=== PATIENT | male | born 1945 | race Caucasian/White ===

== ENCOUNTER → 2018-06-20 16:17 | Outpatient (CLI) | payer MEDICARE, OTHER, SELFPAY ==
[2018-06-20 17:11] LABS: Hematocrit 48.1 % (41-53); Hemoglobin 15.8 g/dL (13.5-17.5); Mean Corpuscular HGB Conc 32.9 % (30-36); Mean Corpuscular Hemoglobin 26.9 PG (26-34); Mean Corpuscular Volume 81.8 fL (80-100); Platelet Count 291 X10^3/uL (150-400); Red Blood Cell Count 5.88 X10^6/uL (4.5-5.9); Red Cell Distribution Width 15.2 % (11.6-14.8); White Blood Cell Count 10.5 X10^3/uL (4.5-11.0)
[2018-06-20 17:23] LABS: Alanine Aminotransferase 46 IU/L (21-72); Albumin 4.1 g/dL (3.5-5.0); Albumin Globulin Ratio 1.4 (1.0-2.8); Alkaline Phosphatase 71 U/L (38-126); Aspartate Aminotransferase 37 IU/L (17-59); BUN Creatinine Ratio 14.3 (6-22); Bilirubin Total 0.7 mg/dL (0.2-1.3); Blood Urea Nitrogen 20 mg/dL (9-20); Calcium 9.8 mg/dL (8.4-10.2); Carbon Dioxide 29 mmol/L (22-32); Chloride 100 mmol/L (98-107); Cholesterol 114 mg/dL (140-199); Globulin 2.9 g/dL (1.7-4.1); Glucose 154 mg/dL (80-110); HDL Cholesterol 40 mg/dL (40-60); HEMOLYSIS < 15 (0-50); Hemoglobin A1C% w Est Avg Glu 8.7 % (4.0-6.0); LDL Cholesterol Calculated 49 mg/dL (<100); Potassium 3.8 mmol/L (3.4-5.1); Sodium 142 mmol/L (137-145); Triglycerides 126 mg/dL (35-150)
[2018-06-20 17:39] LABS: Free T4, Direct Thyroxine 1.82 ng/dL (0.78-2.19); Vitamin D 25 Hydroxy (D3) 32.1 ng/mL (30.0-100.0)
[2018-06-20 17:53] LABS: Thyroid Stimulating Hormone 0.03 uIU/mL (0.47-4.68)
== END ==
PROVIDERS: PCP Student in an Organized Health Care Education/Training Program; Visit Provider Student in an Organized Health Care Education/Training Program
DX: E03.9 Hypothyroidism, unspecified (principal); E55.9 Vitamin D deficiency, unspecified; E11.9 Type 2 diabetes mellitus without complications; G47.33 Obstructive sleep apnea (adult) (pediatric); I10 Essential (primary) hypertension; J20.9 Acute bronchitis, unspecified; J44.0 Chronic obstructive pulmonary disease with (acute) lower respiratory infection
CPT/HCPCS: 36415; 80053; 80061; 82306; 83036; 84439; 84443; 85027

== ENCOUNTER → 2019-02-13 15:24 | Outpatient (CLI) | payer MEDICARE, OTHER, SELFPAY ==
[2019-02-13 16:15] LABS: RBC Urine None Seen (0-5/HPF)
[2019-02-13 16:23] LABS: Appearance Urine UA CLEAR; Bilirubin Urine UA NEGATIVE (NEGATIVE); Color Urine UA ORANGE; Ketones Urine UA NEGATIVE (NEGATIVE); Leukocyte Esterase Urine UA NEGATIVE (NEGATIVE); Occult Blood Urine UA NEGATIVE (Negative)
[2019-02-13 16:30] LABS: Bacteria Urine Few (2-10); Culture Indicated Urine Specimen Cultured; Squamous Epithelial Cell Urine 0-1 /HPF (0-5/HPF); WBC Urine 1-5/HPF (0-5/HPF)
== END ==
PROVIDERS: Family Provider Family Medicine; PCP Student in an Organized Health Care Education/Training Program; Visit Provider Nurse Practitioner
DX: N39.0 Urinary tract infection, site not specified (principal); R30.0 Dysuria
CPT/HCPCS: 81001; 87086

== ENCOUNTER → 2019-09-11 12:51 | Outpatient (CLI) | payer MEDICARE, OTHER, SELFPAY ==
--- NOTE | 2019-09-18 16:29 | PM.PFT.1 ---
Pulmonary Function Test Referral & Results Date Patient Seen: 09/11/19 Requesting provider: Dexter Birch Results: The spirometry demonstrates an FVC of 1.78 L which is 50% of predicted. The FEV1 was measured at 0.95 L which is 37% of predicted. The FEV1/FVC ratio was 53 which is 72% of predicted. No bronchodilator was administered No lung volumes were performed No diffusing capacity was performed Interpretation: This study demonstrates severe obstructive lung disease with FEV1 of less than 1 L Compared to PFTs performed in August 2011, current study shows further decline in lung function with reduction FEV1 from previous value of 1.35 L to current value of 0.95 L.
== END ==
PROVIDERS: Family Provider Family Medicine; PCP Student in an Organized Health Care Education/Training Program; Referring Provider Student in an Organized Health Care Education/Training Program; Visit Provider Student in an Organized Health Care Education/Training Program
DX: J44.0 Chronic obstructive pulmonary disease with (acute) lower respiratory infection (principal); J20.9 Acute bronchitis, unspecified; Z87.891 Personal history of nicotine dependence
CPT/HCPCS: 94010

== ENCOUNTER → 2020-08-18 14:37 | Outpatient (CLI) | payer MEDICARE, OTHER, SELFPAY ==
[2020-08-18 16:38] LABS: Hemoglobin A1C% w Est Avg Glu 6.8 % (4.0-6.0)
[2020-08-18 16:39] LABS: Alanine Aminotransferase 16 IU/L (<50); Albumin 4.1 g/dL (3.5-5.0); Albumin Globulin Ratio 1.2 (1.0-2.8); Alkaline Phosphatase 72 U/L (38-126); Aspartate Aminotransferase 25 IU/L (17-59); BUN Creatinine Ratio 16.1 (6-22); Bilirubin Total 0.4 mg/dL (0.2-1.3); Blood Urea Nitrogen 22 mg/dL (9-20); Calcium 9.3 mg/dL (8.4-10.2); Carbon Dioxide 29 mmol/L (22-32); Estimated Glomerular Filt Rate 50.8 mL/min (>60); Globulin 3.4 g/dL (1.7-4.1); Glucose 116 mg/dL (80-110); HEMOLYSIS < 15 (0-50); Sodium 138 mmol/L (137-145); Total Protein 7.5 g/dL (6.3-8.2)
[2020-08-18 16:51] LABS: Chloride 106 mmol/L (98-107)
[2020-08-18 17:54] LABS: Free T4, Direct Thyroxine 1.14 ng/dL (0.78-2.19)
[2020-08-18 19:52] LABS: Creatinine Urine Random 210.8 mg/dL
[2020-08-18 19:57] LABS: Microalbumi Creatinin Ratio Ur 34.1 ug/mg CR (<30); Microalbumin Urine Random 7.2 mg/dL (0-1.6)
== END ==
PROVIDERS: Family Provider Family Medicine; PCP Student in an Organized Health Care Education/Training Program; Referring Provider Student in an Organized Health Care Education/Training Program; Visit Provider Student in an Organized Health Care Education/Training Program
DX: E11.9 Type 2 diabetes mellitus without complications (principal); E03.9 Hypothyroidism, unspecified; I10 Essential (primary) hypertension; J20.9 Acute bronchitis, unspecified; J44.9 Chronic obstructive pulmonary disease, unspecified
CPT/HCPCS: 36415; 80053; 82043; 82570; 83036; 84439; 84443

== ENCOUNTER → 2021-06-06 14:39 | Outpatient (CLI) | payer MEDICARE, OTHER, SELFPAY ==
[2021-06-06 16:19] LABS: Hemoglobin A1C% w Est Avg Glu 6.3 % (4.0-6.0)
[2021-06-06 16:30] LABS: BUN Creatinine Ratio 15.7 (6-22); Blood Urea Nitrogen 24 mg/dL (9-20); Calcium 9.6 mg/dL (8.4-10.2); Carbon Dioxide 26 mmol/L (22-32); Chloride 102 mmol/L (98-107); Estimated Glomerular Filt Rate 44.7 mL/min (>60); Glucose 96 mg/dL (80-110); HEMOLYSIS < 15 (0-50); Sodium 139 mmol/L (137-145)
[2021-06-06 17:37] LABS: Free T4, Direct Thyroxine 0.58 ng/dL (0.78-2.19)
== END ==
PROVIDERS: Family Provider Family Medicine; PCP Student in an Organized Health Care Education/Training Program; Referring Provider Student in an Organized Health Care Education/Training Program; Visit Provider Student in an Organized Health Care Education/Training Program
DX: E11.69 Type 2 diabetes mellitus with other specified complication (principal); E66.01 Morbid (severe) obesity due to excess calories; N18.31 Chronic kidney disease, stage 3a; E78.5 Hyperlipidemia, unspecified; J44.0 Chronic obstructive pulmonary disease with (acute) lower respiratory infection; J20.9 Acute bronchitis, unspecified; E11.9 Type 2 diabetes mellitus without complications; E03.9 Hypothyroidism, unspecified
CPT/HCPCS: 36415; 80048; 83036; 84439; 84443

== ENCOUNTER 2021-08-23 17:36 | Emergency (ER) | payer MEDICARE, OTHER, SELFPAY ==
[2021-08-23] VITALS (41 sets, daily range): BP systolic 171–221; BP diastolic 76–122; PULSE 59–78; RESP 15–51; TEMP 36.6; O2SAT 91–98; BMI 44.9
--- NOTE | 2021-08-23 17:54 | DI.RAD.S_ITS ---
PROCEDURE: XR CHEST 1V INDICATIONS: dyspnea TECHNIQUE: One view of the chest was acquired. COMPARISON: [facility], CR, CHEST 2VW, 08/14/2011, 12:30. [facility], CR, CHEST 2 VIEW, 08/10/2013, 16:49. FINDINGS: Surgical changes and devices: None. Lungs and pleura: Minimal interstitial prominence can be seen. Low lung volumes are noted. This causes a crowded appearance to the lung markings and limits evaluation. No pleural effusions or pneumothorax. Mediastinum: Mediastinal contours appear normal. Heart size is at the upper limits of normal. Atherosclerotic calcification of the aortic arch is noted. Bones and chest wall: No suspicious bony lesions. Age-appropriate bony degenerative changes are seen. Overlying soft tissues appear unremarkable. IMPRESSION: Minimal interstitial prominence, which is most likely artifactual in this patient with an incomplete inspiratory result. However, differential diagnosis would also include mild pulmonary edema or atypical infection (including COVID pneumonia). If clinically appropriate, a short-term followup chest series (with PA and lateral views) performed in deep inspiration is suggested for further evaluation. Dictated by: Cruz Corey M.D. on 08/23/2021 at 17:43 Approved by: Cruz Corey M.D. on 08/23/2021 at 17:44
[2021-08-23 18:39] LABS: Add Manual Diff / Slide Review NO; Basophils Absolute Auto 100 /uL (0-100); Eosinophils Absolute Auto 900 /uL (0-450); Eosinophils Percent Auto 10.8 % (2-4); Hematocrit 50.2 % (41-53); Hemoglobin 16.5 g/dL (13.5-17.5); Lymphocytes Absolute Auto 1200 /uL (1100-4500); Lymphocytes Percent Auto 14.3 % (25-40); Mean Corpuscular HGB Conc 32.8 % (30-36); Mean Corpuscular Hemoglobin 27.6 PG (26-34); Mean Corpuscular Volume 84.1 fL (80-100); Monocytes Absolute Auto 700 /uL (0-900); Monocytes Percent Auto 7.8 % (3-14); Neutrophils Absolute Auto 5600 /uL (1500-7000); Neutrophils Percent Auto 66.1 % (50-75); Platelet Count 237 X10^3/uL (150-400); Red Blood Cell Count 5.97 X10^6/uL (4.5-5.9); Red Cell Distribution Width 16.3 % (11.6-14.8); White Blood Cell Count 8.4 X10^3/uL (4.5-11.0)
[2021-08-23 18:55] LABS: COVID19 -Nasal RAPID Negative (Negative)
[2021-08-23 19:05] LABS: Creatine Kinase 816 U/L (55-170); Magnesium 2.2 mg/dL (1.6-2.3)
[2021-08-23 19:06] LABS: Alanine Aminotransferase 27 IU/L (<50); Albumin 4.4 g/dL (3.5-5.0); Albumin Globulin Ratio 1.1 (1.0-2.8); Alkaline Phosphatase 63 U/L (38-126); Aspartate Aminotransferase 55 IU/L (17-59); BUN Creatinine Ratio 9.1 (6-22); Bilirubin Total 0.8 mg/dL (0.2-1.3); Blood Urea Nitrogen 15 mg/dL (9-20); Calcium 9.7 mg/dL (8.4-10.2); Carbon Dioxide 30 mmol/L (22-32); Chloride 105 mmol/L (98-107); Estimated Glomerular Filt Rate 40.9 mL/min (>60); Glucose 113 mg/dL (80-110); HEMOLYSIS 23 (0-50); Sodium 140 mmol/L (137-145); Total Protein 8.4 g/dL (6.3-8.2)
[2021-08-23 19:07] LABS: Lactate (Lactic Acid) 1.1 mmol/L (0.7-2.1)
[2021-08-23 19:15] LABS: NT-proBNP (BNP-Adult 18+) 616 pg/mL (<450)
[2021-08-23 19:18] LABS: Troponin I < 0.012 ng/mL (0.01-0.034)
[2021-08-23 19:20] LABS: CKMB % Relative Index 0.7 % (1.5-5.0)
[2021-08-23 19:22] LABS: Procalcitonin 0.09 ng/mL (<0.5)
--- NOTE | 2021-08-23 19:46 | ED.SOB ---
HPI - SOB/Dyspnea General Chief Complaint: Shortness of Breath/Dyspnea Stated Complaint: difficulty breathing Time Seen by Provider: 08/23/21 18:05 Source: patient Mode of arrival: Ambulatory Limitations: no limitations History of Present Illness HPI Narrative: 76-year-old male former smoker with history of COPD and hypertension presents with a caregiver and a chief complaint of progressively worsening shortness of breath with exertion and wheezing over many weeks if not longer. He has had occasional cough with sputum but this is not persistent. He has no chest pain is not dizzy, weak or lightheaded. He has had no nausea or vomiting. He has not been taking his blood pressure medicines for quite some time because he states he thinks it was contributing to the swelling in his feet. He denies recent travel, injuries, history of blood clot. He has no headache or blurred vision and denies any numbness, tingling or weakness of his extremities Related Data Home Medications Medication Instructions Recorded Confirmed Men's multivitamin See Rx Instructions .ROUTE .COMPLEX 05/20/18 08/10/21 Vitamin B12 See Rx Instructions .ROUTE .QDAY 05/20/18 08/10/21 aspirin 81 mg chewable tablet 81 mg PO DAILY 05/20/18 08/10/21 (Children's Aspirin) Previous Rx's Medication Instructions Recorded fluticasone 500 mcg-salmeterol 50 1 inh INHALATION BID #180 ea 08/18/20 mcg/dose blistr powdr for inhalation (Advair Diskus) levothyroxine 200 mcg tablet 200 mcg PO DAILY #90 tab 08/18/20 (Synthroid) levothyroxine 25 mcg tablet 25 mcg PO DAILY #90 tab 08/18/20 (Synthroid) tiotropium bromide 18 mcg capsule 18 mcg INHALATION QDAY #90 cap 08/18/20 with inhalation device (Spiriva with HandiHaler) montelukast 10 mg tablet 10 mg PO Q DAY #90 tab 12/20/20 losartan 100 mg tablet 100 mg PO DAILY #90 tab 06/06/21 metformin 1,000 mg tablet 1,000 mg PO BID #180 tab 06/06/21 liothyronine 5 mcg tablet 10 mcg PO DAILY #120 tab 06/09/21 albuterol sulfate 2.5 mg (3 mL) INHALATION QID PRN 06/20/21 #360 ml albuterol sulfate 90 mcg/actuation 2 puff INHALATION Q4-6H PRN #6.7 g 06/20/21 aerosol inhaler cefuroxime axetil 500 mg tablet 500 mg PO BID #14 tab 08/10/21 prednisone 20 mg tablet 20 mg PO DAILY #10 tab 08/10/21 doxycycline hyclate 100 mg tablet 100 mg PO BID #20 tab 08/23/21 prednisone 10 mg tablet See Rx Instructions .ROUTE 08/23/21 .COMPLEX #30 tab Allergies Allergy/AdvReac Type Severity Reaction Status Date / Time No Known Drug Allergies Allergy Verified 08/10/21 10:48 Review of Systems Review of Systems Narrative: GENERAL: Denies chills, fatigue, malaise, fever, sweats. HEENT: Denies sinus pain, ear pain, sore throat, difficulty swallowing, dizziness. RESPIRATORY: See HPI CARDIOVASCULAR: Denies chest pain, palpitations, orthopnea, edema, GASTROINTESTINAL: Denies nausea, vomiting, abdominal pain, diarrhea, constipation, melena. : Denies dysuria, frequency, incontinence, hematuria, urinary retention. MUSCULOSKELETAL: denies weakness, joint pain, or bony pain SKIN: See HPI NEUROLOGIC: Denies weakness, headache, numbness, change in speech, confusion, seizures, incoordination. PSYCHIATRIC: No concerning psychosocial issues. 12 point review of systems is negative except for those stated above Patient History Medical History Acquired hypothyroidism (06/06/15) Asthma Chronic bilateral low back pain without sciatica (09/06/17) Colon polyps (Unknown) COPD (chronic obstructive pulmonary disease) Essential hypertension (06/06/15) Hearing loss Obstructive sleep apnea syndrome (06/06/15) Pulmonary emphysema (06/06/15) Trigger finger Type 2 diabetes mellitus without complication (06/06/15) Family History Father Asthma Alcohol abuse Mother Breast cancer in situ Dementia Family/Other Dementia Family/Other Obesity Social History marital status: Smoking Status: Former smoker alcohol intake: current substance use type: does not use Smoking Status: Former smoker alcohol intake frequency: 0-2 drinks per day Substance Use Type: does not use Exam Narrative Exam Narrative: GENERAL: [76 year old patient appears stated age. Well-developed patient, in mild distress. HEAD: Atraumatic. Normocephalic. EYES: Pupils equal round and reactive. Extraocular motions intact. No scleral icterus. No injection or drainage. ENT: Nose without bleeding, purulent drainage. Throat without erythema, tonsillar hypertrophy or exudate. Airway patent. NECK: Trachea midline. Non tender CARDIOVASCULAR: Regular rate and rhythm without murmurs, gallops, or rubs. RESPIRATORY: Decreased breath sounds bilaterally with a prolonged expiratory phase wheezes in the apices and some faint crackles in his bases. GASTROINTESTINAL: Abdomen soft, non-tender, nondistended. EXTREMITIES: No edema or joint tenderness. BACK: Nontender without deformity or crepitance. No flank tenderness. NEURO: AOx3. SKIN: No rash or erythema of visible areas Initial Vital Signs Initial Vital Signs: Vital Signs Temperature 97.9 F 08/23/21 17:40 Pulse Rate 68 08/23/21 17:40 Respiratory Rate 32 H 08/23/21 17:40 Blood Pressure 213/103 H 08/23/21 17:40 Pulse Oximetry 94 08/23/21 17:40 Course Orders Ordered: Discontinued Medications Albuterol/Ipratropium (Albuterol/Ipratropium 3 Ml Ampul) 9 ml INH NOW ONE Stop: 08/23/21 20:24 Last Admin: 08/23/21 20:29 Dose: 9 ml Documented by: ASHLEE Albuterol/Ipratropium (Albuterol/Ipratropium 3 Ml Ampul) 3 ml INH NOW ONE Stop: 08/24/21 00:02 Last Admin: 08/24/21 00:04 Dose: 3 ml Documented by: MILAGROS Hydralazine HCl (Hydralazine 20 Mg/Ml Vial) 10 mg IV NOW ONE Stop: 08/23/21 20:48 Last Admin: 08/23/21 20:54 Dose: 10 mg Documented by: MILAGROS Labetalol HCl (Labetalol 20 Mg/4 Ml Syringe) 20 mg IV NOW ONE Stop: 08/23/21 22:04 Last Admin: 08/23/21 22:25 Dose: 20 mg Documented by: MILAGROS Methylprednisolone (Methylprednisolone 125 Mg/2 Ml Vial) 125 mg IV NOW ONE Stop: 08/23/21 20:26 Last Admin: 08/23/21 20:37 Dose: 125 mg Documented by: ROHAN Vital Signs Vital signs: Vital Signs - 8 hr 08/23/21 19:45 08/23/21 20:00 08/23/21 20:15 Pulse Rate 62 64 62 Respiratory Rate 31 H 17 29 H Blood Pressure 213/108 H Pulse Oximetry 94 94 94 08/23/21 20:29 08/23/21 20:30 08/23/21 20:39 Pulse Rate 73 66 63 Respiratory Rate 22 30 H 29 H Blood Pressure 221/112 H 219/100 H Pulse Oximetry 93 94 98 08/23/21 20:45 08/23/21 20:54 08/23/21 21:00 Pulse Rate 63 67 70 Respiratory Rate 26 H 29 H Blood Pressure 219/100 H Pulse Oximetry 98 97 08/23/21 21:01 08/23/21 21:10 08/23/21 21:15 Pulse Rate 72 71 74 Respiratory Rate 28 H 19 21 Blood Pressure 199/95 H 201/97 H Pulse Oximetry 98 98 97 08/23/21 21:20 08/23/21 21:30 08/23/21 21:37 Pulse Rate 74 74 72 Respiratory Rate 29 H 33 H Blood Pressure 193/94 H 193/97 H 193/97 H Pulse Oximetry 97 98 08/23/21 21:40 08/23/21 21:45 08/23/21 21:50 Pulse Rate 72 71 71 Respiratory Rate 22 21 29 H Blood Pressure 196/95 H 193/93 H Pulse Oximetry 97 96 96 08/23/21 22:00 08/23/21 22:07 08/23/21 22:10 Pulse Rate 76 74 71 Respiratory Rate 36 H 33 H 22 Blood Pressure 202/95 H 198/89 H Pulse Oximetry 93 94 08/23/21 22:15 08/23/21 22:20 08/23/21 22:25 Pulse Rate 71 72 78 Respiratory Rate 25 H 20 Blood Pressure 194/92 H 194/92 H Pulse Oximetry 94 94 08/23/21 22:30 08/23/21 22:40 08/23/21 22:45 Pulse Rate 68 59 L 59 L Respiratory Rate 16 15 15 Blood Pressure 189/86 H 171/76 H Pulse Oximetry 93 95 95 08/23/21 22:50 08/23/21 23:00 08/23/21 23:10 Pulse Rate 59 L 61 64 Respiratory Rate 16 20 26 H Blood Pressure 173/84 H 177/86 H 178/87 H Pulse Oximetry 97 96 96 08/23/21 23:19 Pulse Rate 63 Respiratory Rate Blood Pressure 178/87 H Pulse Oximetry MDM - SOB/Dyspnea Lab Data Result diagrams: 08/23/21 18:20 08/23/21 18:20 Labs: Lab Results 08/23/21 08/23/21 08/23/21 Range/Units 18:20 18:20 18:20 WBC 8.4 (4.5-11.0) X10^3/uL RBC 5.97 H (4.5-5.9) X10^6/uL Hgb 16.5 (13.5-17.5) g/dL Hct 50.2 (41-53) % MCV 84.1 (80-100) fL MCH 27.6 (26-34) PG MCHC 32.8 (30-36) % RDW 16.3 H (11.6-14.8) % Plt Count 237 (150-400) X10^3/uL Neut % (Auto) 66.1 (50-75) % Lymph % (Auto) 14.3 L (25-40) % [place] % (Auto) 7.8 (3-14) % Eos % (Auto) 10.8 H (2-4) % Baso % (Auto) 1.0 (0-2) % Neut # (Auto) 5600 (4943-0254) /uL Lymph # (Auto) 1200 (2837-6736) /uL [place] # (Auto) 700 (0-900) /uL Eos # (Auto) 900 H (0-450) /uL Baso # (Auto) 100 (0-100) /uL Sodium (137-145) mmol/L Potassium (3.4-5.1) mmol/L Chloride (98-107) mmol/L Carbon Dioxide (22-32) mmol/L BUN (9-20) mg/dL Creatinine (0.66-1.25) mg/dL Estimated GFR (>60) mL/min BUN/Creatinine Ratio (6-22) Glucose (80-110) mg/dL Lactate 1.1 (0.7-2.1) mmol/L Calcium (8.4-10.2) mg/dL Magnesium 2.2 (1.6-2.3) mg/dL Total Bilirubin (0.2-1.3) mg/dL AST (17-59) IU/L ALT (<50) IU/L Alkaline Phosphatase (38-126) U/L Total Creatine Kinase 816 H (55-170) U/L CK-MB (CK-2) 6.00 H (<2.37) ng/mL CK-MB (CK-2) Rel Index 0.7 L (1.5-5.0) % Troponin I < 0.012 (0.01-0.034) ng/mL NT-Pro-B Natriuret Pep (<450) pg/mL Total Protein (6.3-8.2) g/dL Albumin (3.5-5.0) g/dL Globulin (1.7-4.1) g/dL Albumin/Globulin Ratio (1.0-2.8) Procalcitonin 0.09 (<0.5) ng/mL SARS-CoV-2 (PCR) (Negative) 08/23/21 08/23/21 Range/Units 18:20 18:35 WBC (4.5-11.0) X10^3/uL RBC (4.5-5.9) X10^6/uL Hgb (13.5-17.5) g/dL Hct (41-53) % MCV (80-100) fL MCH (26-34) PG MCHC (30-36) % RDW (11.6-14.8) % Plt Count (150-400) X10^3/uL Neut % (Auto) (50-75) % Lymph % (Auto) (25-40) % [place] % (Auto) (3-14) % Eos % (Auto) (2-4) % Baso % (Auto) (0-2) % Neut # (Auto) (7474-2358) /uL Lymph # (Auto) (4242-9384) /uL [place] # (Auto) (0-900) /uL Eos # (Auto) (0-450) /uL Baso # (Auto) (0-100) /uL Sodium 140 (137-145) mmol/L Potassium 4.0 (3.4-5.1) mmol/L Chloride 105 (98-107) mmol/L Carbon Dioxide 30 (22-32) mmol/L BUN 15 (9-20) mg/dL Creatinine 1.65 H (0.66-1.25) mg/dL Estimated GFR 40.9 L (>60) mL/min BUN/Creatinine Ratio 9.1 (6-22) Glucose 113 H (80-110) mg/dL Lactate (0.7-2.1) mmol/L Calcium 9.7 (8.4-10.2) mg/dL Magnesium (1.6-2.3) mg/dL Total Bilirubin 0.8 (0.2-1.3) mg/dL AST 55 (17-59) IU/L ALT 27 (<50) IU/L Alkaline Phosphatase 63 (38-126) U/L Total Creatine Kinase (55-170) U/L CK-MB (CK-2) (<2.37) ng/mL CK-MB (CK-2) Rel Index (1.5-5.0) % Troponin I (0.01-0.034) ng/mL NT-Pro-B Natriuret Pep 616 H (<450) pg/mL Total Protein 8.4 H (6.3-8.2) g/dL Albumin 4.4 (3.5-5.0) g/dL Globulin 4.0 (1.7-4.1) g/dL Albumin/Globulin Ratio 1.1 (1.0-2.8) Procalcitonin (<0.5) ng/mL SARS-CoV-2 (PCR) Negative (Negative) Imaging Data Chest x-ray: Radiologist's Impression: [address] [address] XRay Report Signed Patient: Rosales Johnson MR#: [id number] : 1945 Acct:[id number] Age/Sex: 76 / M Date of Service: 08/23/21 Loc: ED Accession Number: [id number] ?? Procedure: XR chest 1V Ordering Provider: Roberth Rushing D.O. PROCEDURE:? XR CHEST 1V ? INDICATIONS:? dyspnea ? TECHNIQUE:? One view of the chest was acquired.? ? COMPARISON:? [facility], , CHEST 2VW, 08/14/2011, 12:30.? [facility], CR, CHEST 2 VIEW, 08/10/2013, 16:49. ? FINDINGS:? ? Surgical changes and devices:? None.? ? Lungs and pleura:? Minimal interstitial prominence can be seen. Low lung volumes are noted. This causes a crowded appearance to the lung markings and limits evaluation.? ? No pleural effusions or pneumothorax.? ? Mediastinum:? Mediastinal contours appear normal.? Heart size is at the upper limits of normal.? Atherosclerotic calcification of the aortic arch is noted.? ? Bones and chest wall:? No suspicious bony lesions.? Age-appropriate bony degenerative changes are seen.? Overlying soft tissues appear unremarkable.? ? ? IMPRESSION:? Minimal interstitial prominence, which is most likely artifactual in this patient with an incomplete inspiratory result.? However, differential diagnosis would also include mild pulmonary edema or atypical infection (including COVID pneumonia). ? If clinically appropriate, a short-term followup chest series (with PA and lateral views) performed in deep inspiration is suggested for further evaluation.? Dictated by: Cruz Corey M.D. on 08/23/2021 at 17:43 ? ? Approved by: Cruz Corey M.D. on 08/23/2021 at 17:44 ? MDM Narrative Medical decision making narrative: Patient has significant improvement with above-stated therapies is able to walk out. He was given antihypertensives in his blood pressure came down to the 170s. At no point did he have symptoms that seem to be linked to the hypertension itself. He has agreed to go home and start taking his losartan again. He has have some erythema of his bilateral lower extremities consistent with chronic venous stasis, there is a remote possibility this is cellulitic, doxycycline chosen due to its coverage for skin infection but also its appropriateness for the use of coverage of atypical pneumonia and a smoker. Patient given extensive return precautions and questions have been answered to his apparent satisfaction Discharge Plan Departure Patient Disposition: Home Clinical Impression: Atypical pneumonia, Acute dyspnea, HTN (hypertension) Instructions: DI for Cough -- Adult, DI for Atypical Pneumonia Activity Restrictions/Additional Instructions: *You have been diagnosed with [shortness of breath due to exacerbation of COPD and atypical pneumonia. *What to do: *Please continue to take your regular medications as directed. [ x] New medication prescriptions sent to your pharmacy: [[facility] in [place] ] [ ] New medication written as a paper prescription [ ] No new medications given *Please follow up with your primary care provider in 2-3 days, call for an appointment. Let them know you were seen in the Emergency Department and that we ask that you be seen in follow up. We will electronically transmit a record of today's note if your PCP is in our system *If you do not have a primary care provider please contact the [facility] Resource line at [phone]. They will ask some questions about your medical history and help get you set up with a doctor in the community. *Return to Emergency Department if you should have any new, worsening or concerning symptoms, such as [fever greater than 101 F, shaking chills, worsening pain, persistent vomiting or other bothersome symptoms] Prescriptions: New prednisone 10 mg tablet See Rx Instructions .ROUTE .COMPLEX Qty: 30 0RF Rx Instructions: Day 1,2,3: 40mg PO Daily Day 4,5,6: 30mg PO Daily Day 7,8,9: 20mg PO Daily Day 10,11,12: 10mg PO Daily #30 doxycycline hyclate 100 mg tablet 100 mg PO BID Qty: 20 0RF No Action aspirin [Children's Aspirin] 81 mg tablet,chewable 81 mg PO DAILY 0RF Men's multivitamin See Rx Instructions .ROUTE .COMPLEX 0RF Label Comments: One tablet once a day. ; Rx Instructions: One tablet once a day. ; Vitamin B12 See Rx Instructions .ROUTE .QDAY 0RF Label Comments: Take one by mouth once a day. .QDAY; Rx Instructions: Take one by mouth once a day. .QDAY; montelukast 10 mg tablet 10 mg PO Q DAY Qty: 90 1RF Rx Instructions: PT DUE FOR FOLLOW UP W/PCP PRIOR TO END OF RX. PLEASE CALL TO SCHED. APPT. THANKS 05/23/20 albuterol sulfate 90 mcg/actuation HFA aerosol inhaler 2 puff inhalation Q4-6H PRN (Reason: shortness of breath or wheezing) Qty: 6.7 11RF albuterol sulfate 2.5 mg /3 mL (0.083 %) solution for nebulization 2.5 mg INHALATION QID PRN Qty: 360 11RF Rx Instructions: Use one vial with nebulized up to four times a day as needed for SOB. cefuroxime axetil 500 mg tablet 500 mg PO BID Qty: 14 0RF Rx Instructions: For COPD exacerbation prednisone 20 mg tablet 20 mg PO DAILY Qty: 10 0RF Rx Instructions: 2 tabs for 3 days, then 1 tab for 4 days Spiriva with HandiHaler 18 mcg capsule, w/inhalation device 18 mcg inhalation QDAY Qty: 90 3RF Advair Diskus 500-50 mcg/dose blister with device 1 inh INHALATION BID Qty: 180 3RF levothyroxine [Synthroid] 200 mcg tablet 200 mcg PO DAILY Qty: 90 3RF Rx Instructions: Total dose 225mcg levothyroxine [Synthroid] 25 mcg tablet 25 mcg PO DAILY Qty: 90 3RF Rx Instructions: Total dose 225mcg losartan 100 mg tablet 100 mg PO DAILY Qty: 90 3RF metformin 1,000 mg tablet 1,000 mg PO BID Qty: 180 1RF Hold Instructions: needs labs liothyronine 5 mcg tablet 10 mcg PO DAILY Qty: 120 0RF Rx Instructions: Return for labs 6 weeks after starting Referrals: Dexter Birch MD [Primary Care Provider] -
[2021-08-23] MEDS: ALBUTEROL/IPRATROPIUM 3 ML AMPUL 9 ML INH (20:29)
--- NOTE | 2021-08-23 20:33 | RT ---
[place] STARTED IN ED. GINGER RT UPDATED.
[2021-08-23] MEDS: methylPREDNISolone 125 MG/2 ML VIAL IV (20:37)
[2021-08-23] MEDS: HYDRALAZINE 20 MG/ML VIAL 10 MG IV (20:54)
[2021-08-23] MEDS: LABETALOL 20 MG/4 ML SYRINGE IV (22:25)
[2021-08-24] MEDS: ALBUTEROL/IPRATROPIUM 3 ML AMPUL INH (00:04)
== END 2021-08-24 00:16 | disposition home or self-care (01) ==
PROVIDERS: Emergency Medicine; Emergency Provider Emergency Medicine; Family Provider Family Medicine; PCP Student in an Organized Health Care Education/Training Program
DX: J18.9 Pneumonia, unspecified organism (principal); I10 Essential (primary) hypertension; Z87.891 Personal history of nicotine dependence; Z20.822 Contact with and (suspected) exposure to COVID-19
CPT/HCPCS: 36415; 71045; 80053; 82550; 82553; 83605; 83735; 83880; 84145; 84484; 85025; 87040; 87635; 93005; 94640; 96374; 96375; 99284; C9803; J0360; J2930